=== PATIENT | female | born 1955 | race Two or more races ===

== ENCOUNTER 2020-12-07 10:24 | Emergency (ER) | payer MEDICAID, OTHER ==
[~2020-12-07] VITALS: Ht 149.9 cm; Wt 72.6 kg
[2020-12-07 11:12] VITALS: BP 174/75
[2020-12-07] MEDS ORDERED: HYDROcodone-ACET 5/325MG TAB PO ONE (11:30)
== END 2020-12-07 12:12 | disposition home or self-care (01) ==
LOC: ER 10:24
DX: S52.501A Unspecified fracture of the lower end of right radius, initial encounter for closed fracture (principal); S50.11XA Contusion of right forearm, initial encounter; E11.9 Type 2 diabetes mellitus without complications; W01.0XXA Fall on same level from slipping, tripping and stumbling without subsequent striking against object, initial encounter; Y93.89 Activity, other specified; Y92.89 Other specified places as the place of occurrence of the external cause; Y99.8 Other external cause status
CPT/HCPCS: 29125; 73090

== ENCOUNTER 2022-01-17 11:59 | Emergency (ER) | payer MEDICAID ==
[~2022-01-17] VITALS: Ht 154.9 cm; Wt 90.7 kg
[2022-01-17 12:58] VITALS: BP 110/62
== END 2022-01-17 15:53 | disposition home or self-care (01) ==
LOC: ER 11:59
DX: S93.401A Sprain of unspecified ligament of right ankle, initial encounter (principal); I10 Essential (primary) hypertension; E11.9 Type 2 diabetes mellitus without complications; X50.1XXA Overexertion from prolonged static or awkward postures, initial encounter; Y93.89 Activity, other specified; Y92.89 Other specified places as the place of occurrence of the external cause; Y99.8 Other external cause status
CPT/HCPCS: 73610